=== PATIENT | male | born 1990 | race Caucasian/White ===

== ENCOUNTER 2017-09-08 09:33 | Day surgery (SDC) | payer BC ==
[2017-09-08] MEDS ORDERED: PROPOFOL 10 MG/ML VIAL IV ONE ×2 (09:34)
[2017-09-08] MEDS ORDERED: LIDOCAINE 2% MDV (20MG/ML) 20ML VIAL IV ONE ×2 (09:34)
--- NOTE | 2017-09-11 09:00 | Operative Note ---
DATE OF SURGERY: 09/08/2017 SURGEON: Kristina Majano MD OPERATION: COLONOSCOPY. INDICATIONS: This is a 27-year-old male with history of chronic diarrhea who presented for colonoscopy. POSTOPERATIVE DIAGNOSES: 1. A 3 mm cecal polyp that was removed by cold biopsy forceps. 2. Otherwise normal colon and terminal ileal mucosa. ANESTHESIA: Sedation is per Anesthesia. Pulse oximetry was monitored throughout the procedure to maintain O2 saturation of 90% or greater. Supplemental oxygen was administered via nasal cannula. Cardiac and vital signs were monitored throughout the duration of the procedure, and they were stable. The procedure of colonoscopy and risks and alternatives of the procedure, including the risk of bleeding and perforation, among others, were explained to the patient who voiced understanding and agreed to have the procedure done. Physical examination was performed, and the patient was found stable for sedation. PROCEDURE: The patient was placed in the left lateral position. Sedation was initiated. A digital rectal exam was performed and showed some mild external hemorrhoids with no palpable rectal masses. An Olympus PCF-180AL colonoscope was then inserted into the rectum under direct visualization. It was advanced to the cecum without difficulty. The ileocecal valve and appendiceal orifice were identified and photographed. The colonic mucosa was carefully examined upon introduction of the colonoscope. There were no lesions noted except in the cecum was a 3 mm sessile polyp that was noted and was removed by cold biopsy forceps. The colonoscope was then withdrawn while carefully examining the colonic mucosal surfaces. No lesions were noted. The ileocecal valve was also intubated and the terminal ileal mucosa was inspected for about 10 cm and it appeared nl. The colonoscope was then straightened and withdrawn while the procedure was terminated. Random colon biopsies were obtained to rule out microscopic colitis. He remained with stable vital signs and was transferred to the recovery room. RECOMMENDATIONS: 1. The patient should be on a high-fiber diet. 2. I will see him back in the office as needed. Thank you for allowing me to participate in the care of your patient. CC: Dr. Mike RODRIGUEZ
== END 2017-09-08 12:30 | disposition home or self-care (01) ==
LOC: HOP 09:33
PROVIDERS: ATTEND Internal Medicine Gastroenterology
DX: K52.9 Noninfective gastroenteritis and colitis, unspecified (principal); D12.0 Benign neoplasm of cecum